=== PATIENT | male | born 1975 | race Caucasian/White ===

== ENCOUNTER 2017-01-11 14:56 | Emergency (ER) | payer BC, SELFPAY ==
--- NOTE | 2017-01-11 16:08 | RAD ---
THREE VIEWS FIFTH DIGIT LEFT HAND 01/11/17 HISTORY: Trauma. AP, lateral and oblique views fifth digit left hand is obtained. Images demonstrate a mildly displac ed fracture involving the proximal metaphysis proximal phalanx fifth digit left hand. There is mild medial angulation of the distal fracture fragment. IMPRESSION: Proximal metaphyseal fracture involving the proximal phalanx fifth digit left hand. POS: MED
[2017-01-11] MEDS ORDERED: HYDROcodone/Acetaminophen 5/325 mg Tablet ONE (16:33)
== END 2017-01-11 16:49 | disposition home or self-care (01) ==
LOC: BURERS 14:56
DX: S62.647A Nondisplaced fracture of proximal phalanx of left little finger, initial encounter for closed fracture (principal); F41.9 Anxiety disorder, unspecified; F32.9 Major depressive disorder, single episode, unspecified; F17.220 Nicotine dependence, chewing tobacco, uncomplicated; Z79.899 Other long term (current) drug therapy; X58.XXXA Exposure to other specified factors, initial encounter
CPT/HCPCS: 26720